=== PATIENT | female | born 1985 | race African-American/Black ===

== ENCOUNTER 2022-12-07 01:50 | Emergency (ER) | payer MEDICAID, OTHER ==
[~2022-12-07] VITALS: Ht 157.5 cm; Wt 99.0 kg
[~2022-12-07 01:50] MED LIST: PRENATAL
[2022-12-07] MEDS ORDERED: TETANUS, DIPHTHERIA, PERTUSSIS VAC/PF 0.5ML (>10YR OLD) IM ONE (05:30)
[2022-12-07] MEDS ORDERED: IBUPROFEN 600MG TABLET PO ONE (05:30)
[2022-12-07] MEDS ORDERED: AMOXICILLIN/POTASSIUM CLAVULANATE 875/125MG TAB PO ONE (05:30)
[2022-12-07] MEDS ORDERED: IBUP-2029 MT (05:31)
[2022-12-07] MEDS ORDERED: AMOX1TAB16 MT (05:31)
[2022-12-07 05:39] VITALS: BP 124/83
== END 2022-12-07 05:40 | disposition home or self-care (01) ==
LOC: ER 02:14
DX: S01.551A Open bite of lip, initial encounter (principal); W54.0XXA Bitten by dog, initial encounter; Y93.89 Activity, other specified; Y92.89 Other specified places as the place of occurrence of the external cause; Y99.8 Other external cause status
CPT/HCPCS: 81025; 90471; 90715; 99283; Z7610